=== PATIENT | male | born 1960 | race Caucasian/White ===

== ENCOUNTER 2019-08-21 11:50 | Emergency (ER) | payer BC, OTHER ==
[~2019-08-21] VITALS: Ht 170 cm; Wt 74.0 kg
[~2019-08-21 11:50] MED LIST: CLOP75TA PO; HYDR-1231 PO; SSD50T TOP; SULF1TAB35 PO
[2019-08-21] MEDS ORDERED: meTOprolol 5 MG/5 ML (LOPRESSOR) VIAL ONE (11:55)
--- NOTE | 2019-08-21 11:55 | ED EENT ---
History of Present Illness General Stated Complaint: NOSE BLEED Source: patient Exam Limitations: no limitations History of Present Illness Date Seen by Provider: Aug 21, 2019 Time Seen by Provider: 11:54 Initial Comments [place] [facility] [place] a left-sided nosebleed onset this morning. He has a history of alcoholism (between 6 and 12 beers daily) and takes aspirin daily. They were able to get the nosebleed stopped temporarily but it recurred after being discharged home so he came back. 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 Timing/Duration: abrupt, intermittent Severity: moderate Location: nose Prearrival Treatment: nasal packing Associated Symptoms: denies symptoms Allergies and Home Medications Allergies Coded Allergies: No Known Drug Allergies (Unverified , 11/11/09) Home Medications Lorazepam 1 Mg Tablet, 1 MG PO Q4H PRN for ANXIETY Prescribed by: KARMA RHOADES on 08/21/19 1240 Metoprolol Succinate 50 Mg Tab.er.24h, 50 MG PO DAILY Prescribed by: KARMA RHOADES on 08/21/19 1240 Patient Home Medication List Home Medication List Reviewed: Yes Review of Systems Review of Systems Constitutional: see HPI Eyes: No Symptoms Reported Ears: No Symptoms Reported Nose: see HPI Mouth: no symptoms reported Throat: no symptoms reported Respiratory: no symptoms reported Cardiovascular: no symptoms reported Past Ksdoaca-Rdxdfd-Kjdhzp Hx Patient Social History Recent Foreign Travel: No Contact w/Someone Who Travel: No Immunizations Up To Date Tetanus Booster (TDap): Unknown Past Medical History COPD Reproductive Disorders: No Sexually Transmitted Disease: No Physical Exam Vital Signs Vital Signs - First Documented 08/21/19 11:50 Temp 37.0 Pulse 137 Resp 16 B/P (MAP) 165/113 (130) Pulse Ox 97 O2 Delivery Room Air Height, Weight, BMI Height: 5'10" Weight: 155lbs. oz. 70.888411le; BMI Method:Stated General Appearance: WD/WN, no apparent distress, thin (anxious appearing, states his last drink was yesterday. As such 1 mg of lorazepam IV was given. On arrival his heart rate was 1:30 sinus, blood pressure 180/93. Also gave 5 mg of Lopressor IV. The gauze was removed from each side of his nose which was minimal anterior packing only. There is no blood draining down the oropharynx and there is no blood draining out of the front. He states typically it would be dripping out the front very heavily. As such in an effort not to injure or irritate any already irritated mucosa were just going to apply some Afrin spray each nostril and observe him. If he starts to bleed then we'll proceed with more aggressive packing. I am unable to visualize any source of current or previous bleeding.) Eyes: bilateral eye normal inspection, bilateral eye PERRL, bilateral eye EOMI Ears: bilateral ear auricle normal, bilateral ear canal normal, bilateral ear TM normal Neck: non-tender, full range of motion Respiratory: no respiratory distress, no accessory muscle use Neurologic/Psychiatric: alert, normal mood/affect, oriented x 3 Skin: normal color, warm/dry Progress/Results/Core Measures Results/Orders Lab Results Laboratory Tests Test 08/21/19 12:00 Range/Units White Blood Count 10.8 4.3-11.0 10^3/uL Red Blood Count 4.36 4.35-5.85 10^6/uL Hemoglobin 15.1 13.3-17.7 G/DL Hematocrit 43 40-54 % Mean Corpuscular Volume 98 80-99 FL Mean Corpuscular Hemoglobin 35 H 25-34 PG Mean Corpuscular Hemoglobin Concent 35 32-36 G/DL Red Cell Distribution Width 12.2 10.0-14.5 % Platelet Count 350 130-400 10^3/uL Mean Platelet Volume 8.6 7.4-10.4 FL Neutrophils (%) (Auto) 79 H 42-75 % Lymphocytes (%) (Auto) 12 12-44 % Monocytes (%) (Auto) 8 0-12 % Eosinophils (%) (Auto) 1 0-10 % Basophils (%) (Auto) 1 0-10 % Neutrophils # (Auto) 8.6 H 1.8-7.8 X 10^3 Lymphocytes # (Auto) 1.3 1.0-4.0 X 10^3 Monocytes # (Auto) 0.8 0.0-1.0 X 10^3 Eosinophils # (Auto) 0.1 0.0-0.3 10^3/uL Basophils # (Auto) 0.1 0.0-0.1 10^3/uL Prothrombin Time 13.0 12.2-14.7 SEC INR Comment 0.9 0.8-1.4 Sodium Level 132 L 135-145 MMOL/L Potassium Level 4.4 3.6-5.0 MMOL/L Chloride Level 99 98-107 MMOL/L Carbon Dioxide Level 20 L 21-32 MMOL/L Anion Gap 13 5-14 MMOL/L Blood Urea Nitrogen 13 7-18 MG/DL Creatinine 0.72 0.60-1.30 MG/DL Estimat Glomerular Filtration Rate > 60 BUN/Creatinine Ratio 18 Glucose Level 144 H 70-105 MG/DL Calcium Level 9.3 8.5-10.1 MG/DL Corrected Calcium 9.1 8.5-10.1 MG/DL Total Bilirubin 0.4 0.1-1.0 MG/DL Aspartate Amino Transf (AST/SGOT) 23 5-34 U/L Alanine Aminotransferase (ALT/SGPT) 16 0-55 U/L Alkaline Phosphatase 63 40-136 U/L Total Protein 7.3 6.4-8.2 GM/DL Albumin 4.2 3.2-4.5 GM/DL Serum Alcohol < 10 <10 MG/DL My Orders Orders - KARMA RHOADES APRN Cbc With Automated Diff (08/21/19 11:52) Protime With Inr (08/21/19 11:52) Comprehensive Metabolic Panel (08/21/19 11:52) Alcohol (08/21/19 11:53) Metoprolol Tartrate Injection (Lopressor (08/21/19 11:55) Lorazepam Injection (Ativan Injection) (08/21/19 11:56) Lorazepam Injection (Ativan Injection) (08/21/19 12:15) Metoprolol Tartrate Injection (Lopressor (08/21/19 12:15) Oxymetazoline 0.05% Nasal [place] (Afrin 0. (08/21/19 21:00) Oxymetazoline 0.05% Nasal [place] (Afrin 0. (08/21/19 12:12) Medications Given in ED Current Medications Medications Dose Ordered Sig/Марина Route Start Time Stop Time Status Last Admin Dose Admin Lorazepam 1 mg ONCE ONCE IVP 08/21/19 12:15 08/21/19 12:16 DC 08/21/19 12:05 1 MG Metoprolol Tartrate 5 mg ONCE ONCE IV 08/21/19 12:15 08/21/19 12:16 DC 08/21/19 12:06 5 MG Vital Signs/I&O 08/21/19 11:50 Temp 37.0 Pulse 137 Resp 16 B/P (MAP) 165/113 (130) Pulse Ox 97 O2 Delivery Room Air Departure Communication (Admissions) States that he intends to quit drinking today. 1253-just before discharge she had a small amount of oozing from the left nostril, I went ahead and placed a 5.5 cm anterior Rhino Rocket as he was intolerant of a 7.5 cm anterior/posterior rocket. No blood in the oropharynx or dripping out the front. Advised him he could return to the ER or remove this himself tomorrow by gently pulling on it. Impression Primary Impression: Epistaxis Additional Impressions: Hypertension Qualified Codes: I10 - Essential (primary) hypertension Alcohol use Disposition: HOME, SELF-CARE Condition: Stable Departure-Patient Inst. Decision time for Depature: 12:37 Referrals: PARVEEN REYES MD (PCP/Family) Primary Care Physician Patient Instructions: Nosebleeds, High Blood Pressure in Adults Add. Discharge Instructions: 1. It would be a better idea to slowly taper off of the beer rather suddenly stopping it. For example if you drink a 12 pack daily and drink 11 beers a day for a few days then 10 beers a day then 9 beers etc. Medication as directed. The lorazepam will help with anxiety but do not take it within 3 or 4 hours of drinking alcohol. Blood pressure medication as directed. If nosebleed recurs and return to the emergency room and will go ahead and pack it. Scripts Lorazepam (Ativan) 1 Mg Tablet 1 MG PO Q4H PRN for ANXIETY for 7 Days, #10 TAB Prov: KARMA RHOADES CONTAINER SHOP WELDER 08/21/19 Metoprolol Succinate (Metoprolol Succinate) 50 Mg Tab.er.24h 50 MG PO DAILY, #20 TAB Prov: AKRMA RHOADES CONTAINER SHOP WELDER 08/21/19 KARMA RHOADES CONTAINER SHOP WELDER Aug 21, 2019 11:55
[2019-08-21] MEDS ORDERED: LORazepam INJ 2 MG/ML (ATIVAN) VIAL ONE (11:56)
[2019-08-21] MEDS ORDERED: OXYMETAZOLINE (AFRIN) 0.05% NA 30 ML BTL ONE (12:12)
[2019-08-21 12:15] LABS: BASOPHILS # (AUTO) 0.1 10^3/uL (0.0-0.1); BASOPHILS % (AUTO) 1 % (0-10); EOSINOPHILS # (AUTO) 0.1 10^3/uL (0.0-0.3); EOSINOPHILS % (AUTO) 1 % (0-10); HEMATOCRIT 43 % (40-54); HEMOGLOBIN 15.1 G/DL (13.3-17.7); LYMPHOCYTES # (AUTO) 1.3 X 10^3 (1.0-4.0); LYMPHOCYTES % (AUTO) 12 % (12-44); MEAN CORPUSCULAR HEMOGLOBIN 35 PG (25-34); MEAN CORPUSCULAR HGB CONC 35 G/DL (32-36); MEAN CORPUSCULAR VOLUME 98 FL (80-99); MEAN PLATELET VOLUME 8.6 FL (7.4-10.4); MONOCYTES # (AUTO) 0.8 X 10^3 (0.0-1.0); MONOCYTES % (AUTO) 8 % (0-12); NEUTROPHILS # (AUTO) 8.6 X 10^3 (1.8-7.8); NEUTROPHILS % (AUTO) 79 % (42-75); PLATELET COUNT 350 10^3/uL (130-400); RED CELL DISTRIBUTION WIDTH 12.2 % (10.0-14.5); WHITE BLOOD COUNT 10.8 10^3/uL (4.3-11.0)
[2019-08-21] MEDS ORDERED: LORazepam INJ 2 MG/ML (ATIVAN) VIAL IVP ONE (12:15)
[2019-08-21] MEDS ORDERED: meTOprolol 5 MG/5 ML (LOPRESSOR) VIAL IV ONE (12:15)
[2019-08-21 12:23] LABS: INR 0.9 (0.8-1.4)
[2019-08-21 12:24] LABS: ALBUMIN 4.2 GM/DL (3.2-4.5)
[2019-08-21 12:25] LABS: CHLORIDE 99 MMOL/L (98-107); POTASSIUM 4.4 MMOL/L (3.6-5.0); SODIUM 132 MMOL/L (135-145)
[2019-08-21 12:26] LABS: CALCIUM 9.3 MG/DL (8.5-10.1)
[2019-08-21 12:27] LABS: GLUCOSE 144 MG/DL (70-105); TOTAL PROTEIN 7.3 GM/DL (6.4-8.2)
[2019-08-21 12:28] LABS: CARBON DIOXIDE 20 MMOL/L (21-32)
[2019-08-21 12:29] LABS: BILIRUBIN,TOTAL 0.4 MG/DL (0.1-1.0)
[2019-08-21 12:31] LABS: ALKALINE PHOSPHATASE 63 U/L (40-136); CREATININE SERUM 0.72 MG/DL (0.60-1.30); GFR ESTIMATED > 60
[2019-08-21 12:32] LABS: BUN/CREATININE RATIO 18
[2019-08-21 12:34] LABS: ALANINE AMINOTRANSFERASE 16 U/L (0-55)
[2019-08-21] MEDS ORDERED: METO50TA7 PO (12:40)
[2019-08-21] MEDS ORDERED: LORA-405 PO (12:40)
[2019-08-21 12:53] VITALS: BP 139/79
--- OUTSIDE RECORDS SUMMARY | 2019-08-21 13:55 | XMS REPORT ---
Author Author [facility] Organization [facility] 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 Immunizations No Information Results No Information Vital Signs The data below is from unstructured sources Vital Response Date/Time Temperature (Fahrenheit) 98 degrees F (97.6 - 99.5) Temperature (Calculated Celsius) 36. 6696 degrees C (36.4 - 37.5) Temperature Source Tympanic Pulse Rate (adult) 78 bpm (60 - 90) Respiratory Rate 18 bpm (12 - 24) O2 Sat by Pulse Oximetry 96 % (88 - 100) Blood Pressure 123/75 mm Hg Pain Pain Intensity 4 Height (Feet) 5 feet Height (Inches) 10 inches Height (Calculated Centimeters) 177. 062945 cm Weight (Pounds) 155 pounds Weight (Calculated Kilograms) 70.306 818 kilograms Calculated BMI 22.24 Interventions No Information Plan of Treatment The data below is from unstructured sourcesNo plan of care. Goals No Information Social History No Information Functional Status The data below is from unstructured sourcesNo functional status results. Mental Status No Information Encounters Encounter Normalized Encounter Encounter Diagnosis Care Provi ismael Organization Date Type 06-19-2016 Patient encounter no information no name (no phone) no organization name - procedure (no phone) 07-18-2016 Medical Equipment No Information Payers Normalized Payer Value [facility] no information Advance Directives Directive Response Recor ded Date/Time Advance Directives No 12:36pm Health Care Power of Galvanizer Zinc No 11/26/13 12:36pm Organ Donor No 11/26/13 12:36pm Resuscitation Status Full Code 11/26/13 12:36pm Discharge Instructions No hospital discharge instructions. Additional Source Comments This clinical document has been generated using [employer] software that has been certified by the Office of the National Coordinator for Health Information Technology (ONC 15.99.04.3023.Diam.31.00.0.906241) and the National Committee for Education And Outreach Coordinator (NCQA, as an eMeasure certified technology). FOR RECORDS PERTAINING TO PATIENTS WHO ARE OR HAVE BEEN ENROLLED IN A CHEMICAL D EPENDENCY/SUBSTANCE ABUSE PROGRAM, SOME INFORMATION MAY BE OMITTED. This clinica l summary was aggregated from multiple sources. Caution should be exercised in using it in the provision of clinical care. This summary normalizes information from multiple sources, and as a consequence, information in this document may ma terially change the coding, format and clinical context of patient data. In thaddeus tion, data may be omitted in some cases. CLINICAL DECISIONS SHOULD BE BASED ON T HE PRIMARY CLINICAL RECORDS. [employer] provides no warranty or guara ntee of the accuracy or completeness of information in this document.The followi ng information is based on time limited clinical information
--- OUTSIDE RECORDS SUMMARY | 2019-08-21 13:55 | XMS REPORT | Continuity of Care Document ---
Author Organization Unknown Address Unknown Phone Unavailable Allergies Active Description Code Type Severity Reaction Onset Reported/Identified Relationship to Patient Clinical Status Yes No Known Drug Allergies [id number] Drug Allergy Unknown N/A 11/11/2009 Medications There is no data. Problems Date Dx Coded Attending Type Code Diagnosis Diagnosed By 11/26/2013 DIPTI BUCK DO Ot 911.0 11/26/2013 DIPTI BUCK DO Ot 916.0 11/26/2013 DIPTI BUCK DO Ot 945.34 11/26/2013 DIPTI BUCK DO Ot 959.7 11/26/2013 DIPTI BUCK DO Ot E000.8 11/26/2013 DIPTI BUCK DO Ot E816.2 11/26/2013 DIPTI BUCK DO Ot V06.1 Procedures There is no data. Results There is no data. Encounters ACCT No. Visit Date/Time Discharge Status Pt. Type Provider Facility Loc./Unit Complaint [id number] 11/26/2013 12:27:00 014 14:02:00 DIS Emergency DIPTI BUCK DO [facility] ER
[2019-08-21] MEDS ORDERED: OXYMETAZOLINE (AFRIN) 0.05% NA 30 ML BTL SCH (21:00)
== END 2019-08-21 12:53 | disposition home or self-care (01) ==
LOC: EDUNIT# 11:50 → ER 11:51
DX: R04.0 Epistaxis (principal); I10 Essential (primary) hypertension; F10.20 Alcohol dependence, uncomplicated; Z79.82 Long term (current) use of aspirin; Y90.0 Blood alcohol level of less than 20 mg/100 ml
CPT/HCPCS: 36415; 80053; 80320; 85025; 85610; 96374; 96375; 99282

== ENCOUNTER 2021-05-31 08:59 | Outpatient (CLI) | payer BC ==
[~2021-05-31 08:59] MED LIST changes: +LISI10TA25 PO; +LORA-405 PO; +METO50TA7 PO
[2021-05-31] MEDS ORDERED: AMBIEN PO (10:44)
== END 2021-06-01 17:50 | disposition home or self-care (01) ==
LOC: PREOP 08:59
PROVIDERS: ATTEND Surgery
DX: Z01.818 Encounter for other preprocedural examination (principal)

== ENCOUNTER 2021-06-01 12:02 | Day surgery (SDC) | payer BC ==
[~2021-06-01] VITALS: Ht 177.8 cm; Wt 70.3 kg
[2021-06-01] VITALS (20 sets, daily range): BP systolic 65–167; BP diastolic 49–91
[~2021-06-01 12:02] MED LIST changes: +AMBIEN PO
[2021-06-01] MEDS ORDERED: NS IV 500 ML 500 ML ONE (12:08)
[2021-06-01] MEDS ORDERED: LIDOCAINE JELLY 2% 6 ML SYRINGE MM PRN (12:15)
[2021-06-01] MEDS ORDERED: MIDAZOLAM 5 MG/5 ML (VERSED) VIAL IV ONE (12:15)
[2021-06-01] MEDS ORDERED: fentaNYL INJ 100 MCG/2 ML AMP IVP ONE (12:15)
[2021-06-01] MEDS: NS IV 500 ML 500 ML IV PRN ×2 (12:31→13:44)
--- NOTE | 2021-06-01 12:56 | Conscious Sedation/ASA ---
Conscious Sedation Pre-Proced Time 12:30 ASA Score 2 For ASA 3 and 4: Consider anesthesia and medical clearance. Also, for patients with a history of failed moderate sedation consider anesthesia. Airway Lungs Heart ASA score ASA 1: a normal healthy patient ASA 2: a patient with a mild systemic disease (mid diabetes, controlled hypertension, obesity ASA 3: a patient with a severe systemic disease that limits activity (angina, COPD, prior Myocardial infarction) ASA 4: a patient with an incapacitating disease that is a constant threat to life (CHF, renal failure) ASA 5: a moribund patient not expected to survive 24 hrs. (ruptured aneurysm) ASA 6: a declared brain- patient whose organs are being harvested. For emergent operations, add the letter E after the classification Mallampati Classification Grade 2 Sedation Plan Analgesia, Amnesia, Plan communicated to team members, Discussed options with patient/fam, Discussed risks with patient/fam The patient is an appropriate candidate to undergo the planned procedure, sedation, and anesthesia. The patient immediately re-assessed prior to indication. SOSA GOMEZ MD Jun 01, 2021 12:56
--- NOTE | 2021-06-01 12:56 | Progress Note-Pre Operative ---
Pre-Operative Progress Note H&P Reviewed The H&P was reviewed, patient examined and no changes noted. Date Seen by Provider: Jun 01, 2021 Time Seen by Provider: 12:30 Date H&P Reviewed: Jun 01, 2021 Time H&P Reviewed: 12:30 Pre-Operative Diagnosis: screening SOSA Daigle MD Jun 01, 2021 12:56
--- NOTE | 2021-06-01 12:57 | Discharge Inst-Surgical ---
D/C Lap Instructions-JASON Follow Up Activity as tolerated High Fiber Diet 25g or more per day Avoid Alcohol, Caffeine, Spicy [place] and Acid foods. Drink 64 fluid oz or more of fluids per day. Symptoms to Report: Fever over 101 degree F, Nausea/Vomiting If any problems/questions: Contact your physician or go to Emergency Room SOSA GOMEZ MD Jun 01, 2021 12:57
[2021-06-01] MEDS ORDERED: ONDANSETRON 4 MG (ZOFRAN) ORAL DISSOLVE TAB PO PRN (13:00)
[2021-06-01] MEDS ORDERED: ONDANSETRON 4 MG/2 ML (SDV) Z0FRAN IVP PRN (13:00)
[2021-06-01] MEDS ORDERED: fentaNYL INJ 100 MCG/2 ML AMP ONE (13:24)
[2021-06-01] MEDS ORDERED: MIDAZOLAM 5 MG/5 ML (VERSED) VIAL ONE (13:24)
[2021-06-01] MEDS ORDERED: PROPOFOL INJECTION 50 ML IV ONE (13:48)
--- NOTE | 2021-06-01 14:08 | Anesthesia-General Post-Op ---
MAC Patient Condition Mental Status/LOC: Same as Preop Cardiovascular: Satisfactory Nausea/Vomiting: Absent Respiratory: Satisfactory Pain: Controlled Complications: Absent Post Op Complications Complications None Follow Up Care/Instructions Patient Instructions None needed. Anesthesiology Discharge Order Discharge Order Patient is doing well, no complaints, stable vital signs, no apparent adverse anesthesia problems. No complications reported per nursing. JOSE MARIA CARNEY CRNA Jun 01, 2021 14:08
[2021-06-01] MEDS ORDERED: LACTATED RINGERS 1,000 ML IV ONE ×2 (14:13→15:30)
--- NOTE | 2021-06-01 14:14 | Progress Note-Post Operative ---
Post-Operative Progess Note Surgeon (s)/Refinery Operator Reforming Unit (s) Surgeon SOSA GOMEZ MD Refinery Operator Reforming Unit: none Pre-Operative Diagnosis screening colo Post-Operative Diagnosis chronic stage 2 ext and int hemorrhoids, sessile polyp sigmoid colon(5mm). Procedure & Operative Findings Date of Procedure 06/01/21 Procedure Performed/Findings colonoscopy with snare polypectomy Anesthesia Type mac Estimated Blood Loss Estimated blood loss (mL): minimal Specimens/Packing Specimens Removed sigmoid colon polyp SOSA GOMEZ MD Jun 01, 2021 14:14
--- NOTE | 2021-06-01 17:44 | OPERATIVE REPORT ---
DATE OF SERVICE: 06/01/2021 ATTENDING PRIMARY CARE PHYSICIAN: Tam North DO PREOPERATIVE DIAGNOSES: Constipation, incomplete evacuation of stool. POSTOPERATIVE DIAGNOSES: Chronic stage II external and internal hemorrhoids, sessile polyp of the sigmoid colon, approximately 5 mm in diameter. PROCEDURE: Colonoscopy with snare polypectomy. SURGEON: Sosa Collins MD ANESTHESIA: Monitored anesthesia care. ESTIMATED BLOOD LOSS: Minimal. FINDINGS: Same as postoperative diagnoses. DISPOSITION: The patient tolerated the procedure well. INDICATIONS: The patient is a 60-year-old male in need of a colonoscopy. He has not had a colonoscopy up to this point in his life. He states that he has always been regular and had a bowel movement every morning, which he felt was normal in consistency. Of note, he does have a history of heavy alcohol use and did quit one month ago. In the past 2 weeks, he has had issues with loose stools; however, he also feels that he has to have a bowel movement; however, when he tries to have one, he feels incomplete evacuation of stool. He does not know of any family history of colon cancer as he is adopted. DESCRIPTION OF PROCEDURE: The patient was brought to the endoscopy suite, laid in left lateral decubitus position. After adequate IV pain and sedative medications and monitored anesthesia care, a digital rectal examination was performed. Stage II external and internal hemorrhoids were identified, which were not actively edematous nor inflamed and no bleeding. Normal suture tone was felt and there were no palpable masses. Prostate gland was palpable and appeared to be normal. The endoscope was then intubated into anus and rectum gently insufflated. The endoscope was then advanced through the valves of Elliott of the rectum with no polyps or any neoplasms identified. Through the sigmoid colon, there was a sessile polyp, which was removed as best as possible using a snare and electrocautery. The lesion was approximately 5 mm in size. This was sent to pathology. The endoscope was then advanced to the remainder of the descending, transverse and ascending colon to the cecum, which appeared normal with no other lesions identified. The endoscope was then slowly withdrawn while taking a second look and suctioning of residual air with no additional findings. The patient tolerated the procedure well. We will recommend the necessary lifestyle and dietary accommodation including addition of a fiber supplement, which should equal or exceed 30 grams daily as well as significant amounts of water to promote soft stools on a daily basis. We will await the pathology results of the sigmoid colon biopsy and if there is any villous component identified, we will have him proceed with a followup colonoscopy in 3 years. Job ID: [id number] DocumentID: [id number] Dictated Date: 06/01/2021 14:09:43 Forge Operator Helper Date: 06/01/2021 17:43:56 Dictated By: SOSA COLLINS MD
== END 2021-06-01 15:25 | disposition home or self-care (01) ==
LOC: ENDO 12:02
PROVIDERS: ATTEND Surgery
DX: D12.5 Benign neoplasm of sigmoid colon (principal); K64.1 Second degree hemorrhoids; K64.4 Residual hemorrhoidal skin tags; I10 Essential (primary) hypertension; F17.290 Nicotine dependence, other tobacco product, uncomplicated; F10.21 Alcohol dependence, in remission; Z79.899 Other long term (current) drug therapy
CPT/HCPCS: 88305